=== PATIENT | female | born 1975 | race Caucasian/White ===

== ENCOUNTER 2021-10-23 15:30 | Emergency (ER) | payer OTHER ==
[2021-10-23 15:54] VITALS: BP 141/89; PULSE 77; RESP 16; TEMP 98.1
--- NOTE | 2021-10-23 17:15 | XR ---
PROCEDURE: XR hand complete LT - 3V DATE AND TIME: 10/23/2021 4:55 PM CLINICAL INDICATION: PHH; FB IN HAND TECHNIQUE: Department protocol COMPARISON: None FINDINGS: There is a radiopaque needle-like foreign body in the medial soft tissues of the wrist, at the level of the distal carpal row. This foreign body in the subcutaneous position and does not abut skeletal s tructures. The soft tissues are otherwise unremarkable. There is no fracture or malalignment. IMPRESSION: Radiopaque needlelike foreign body.
[2021-10-23] MEDS ORDERED: LIDOCAINE 1% INJ 10MG/ML (5 ML VIAL-PF) SQ ONE (18:42)
--- NOTE | 2021-10-23 19:09 | ED ---
General Adult HPI - General Chief complaint: Skin/Abscess/Foreign Body Stated complaint: FB in hand Time Seen by Provider: 10/23/21 15:50 Source: patient Mode of arrival: ambulatory Limitations: no limitations - History of Present Illness Initial comments: 46 year old female with past history of heroin abuse presents to the emergency room from [place]. She mentioned to them that she has a retained needle stuck in her left hand from a 6 month ago. She did mention that it was causing her some discomfort and therefore they recommended that she come into the emergency room for evaluation. The needle is superficial. Denies any overlying redness or swelling. No fevers or chills. No other alleviating, precipitating or modifying factors - Related Data Allergies Allergy/AdvReac Type Severity Reaction Status Date / Time No Known Allergies Allergy Verified 10/23/21 15:54 Review of Systems ROS Statement: Those systems with pertinent positive or pertinent negative responses have been documented in the HPI. ROS Other: All systems not noted in ROS Statement are negative. 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 No overlying redness or skin defomity. 2+ DP and PT pulses. ) Course Vital Signs 10/23/21 15:50 Temperature 98.1 F Pulse Rate 77 Respiratory 16 Rate Blood Pressure 141/89 O2 Sat by Pulse 100 Oximetry Procedures - Forgein Body Removal Soft Tissue Consent Obtained: verbal consent Site: hand Anesthetic Used: lidocaine 1% Amount (mLs): 5 Foreign Body Suspected: Other (metallic needle) Foreign Body Removed: yes Foreign Body Removal Technique: Instrumentation Patient Tolerated Procedure: well, no complications Medical Decision Making - Medical Decision Making Upon arrival the patient is placed into the [facility] room. Area was anesthetized using 5 mL of 1% lidocaine. I did make a small knick and I am able to extract the needle. Patient will be discharged home at this time and instructed to keep area clean and dry. Return to the emergency room for any new or worsening symptoms. patient agreed and she was discharged in stable condition Disposition Clinical Impression: Soft tissues foreign body Disposition: HOME SELF-CARE Condition: Stable Instructions (If sedation given, give patient instructions): Soft Tissue Foreign Body (ED) Additional Instructions: Your foreign body was removed successfully. Please keep clean and covered until healed. Return for any new or worsening symptoms. Is patient prescribed a controlled substance at d/c from ED?: No Referrals: None,Stated [Primary Care Provider] - 1-2 days Time of Disposition: 19:09
== END 2021-10-23 19:30 | disposition home or self-care (01) ==
LOC: EC 15:30
DX: S60.457A Superficial foreign body of left little finger, initial encounter (principal); F17.200 Nicotine dependence, unspecified, uncomplicated; W45.8XXA Other foreign body or object entering through skin, initial encounter
CPT/HCPCS: 73130; 99283; J2001